=== PATIENT | female | born 1940 | race Caucasian/White ===

== ENCOUNTER 2016-10-15 11:48 | Emergency (ER) | payer OTHER ==
[~2016-10-15] VITALS: Ht 162.6 cm; Wt 93.2 kg
[~2016-10-15 11:48] MED LIST: DICL75TA5 PO; ENAL10 PO; GABA-533 PO; OMEP20 PO
[2016-10-15] MEDS ORDERED: ATOR20TA86 PO (11:56)
[2016-10-15] MEDS ORDERED: GUAIFDM PO (11:58)
[2016-10-15 12:36] LABS: BASOPHILS % (AUTO) 0.3 % (0.0-2.0); EOSINOPHILS % (AUTO) 2.5 % (1.0-6.0); HEMATOCRIT 37.7 % (36-46); HEMOGLOBIN 12.1 g/dL (12.0-16.0); LYMPHOCYTES # (AUTO) 1.8 K/uL (1.0-4.8); LYMPHOCYTES % (AUTO) 18.4 % (22.0-44.0); MEAN CORPUSCULAR HEMOGLOBIN 27.5 pg (26.0-34.0); MEAN CORPUSCULAR HGB CONC 32.2 G/dL (31.0-37.0); MEAN CORPUSCULAR VOLUME 85 fL (80-100); MONOCYTES # (AUTO) 0.8 K/uL (0.1-1.0); MONOCYTES % (AUTO) 7.8 % (2.0-9.0); NEUTROPHILS # (AUTO) 6.8 K/uL (1.8-7.7); PLATELET COUNT (AUTO) 278 K/uL (150-450); RED BLOOD CELL COUNT(AUTO) 4.41 MIL/uL (4.00-5.20); RED CELL DISTRIBUTION WIDTH 15.6 % (11.5-14.5); WHITE BLOOD COUNT (AUTO) 9.6 K/uL (4.5-11.0)
[2016-10-15 12:49] LABS: INFLUENZA TYPE B NEGATIVE FOR TYPE B (NEGATIVE)
[2016-10-15 13:36] VITALS: BP 150/74
== END 2016-10-15 13:38 | disposition home or self-care (01) ==
LOC: EMS 11:52
DX: J40 Bronchitis, not specified as acute or chronic (principal); K21.9 Gastro-esophageal reflux disease without esophagitis; E78.00 Pure hypercholesterolemia, unspecified; I10 Essential (primary) hypertension
CPT/HCPCS: 71020; 87804; 99285

== ENCOUNTER 2021-05-26 20:09 | Emergency (ER) | payer MEDICARE, OTHER ==
[~2021-05-26] VITALS: Ht 160 cm; Wt 83.2 kg
[~2021-05-26 20:09] MED LIST changes: +ATOR20TA86 PO; +ENAL-90 PO; -ENAL10 PO; +GABA-1201 PO; -GABA-533 PO; +GUAIFDM PO
[2021-05-26] MEDS ORDERED: ACETAMINOPHEN 325 MG TABLET PO ONE (23:15)
[2021-05-26 23:32] VITALS: BP 166/76
== END 2021-05-26 23:58 | disposition home or self-care (01) ==
LOC: EMS 20:14
DX: S00.03XA Contusion of scalp, initial encounter (principal); S40.012A Contusion of left shoulder, initial encounter; K21.9 Gastro-esophageal reflux disease without esophagitis; I10 Essential (primary) hypertension; E78.00 Pure hypercholesterolemia, unspecified; W18.39XA Other fall on same level, initial encounter; Y93.89 Activity, other specified; Y92.89 Other specified places as the place of occurrence of the external cause; Y99.8 Other external cause status
CPT/HCPCS: 70450; 72125; 99284

== ENCOUNTER 2022-11-28 12:13 | Emergency (ER) | payer MEDICARE ==
[~2022-11-28] VITALS: Ht 152.4 cm; Wt 86.4 kg
[~2022-11-28 12:13] MED LIST changes: +ATOR20TA PO; -ATOR20TA86 PO
[2022-11-28 12:21] VITALS: BP 138/64
[2022-11-28] MEDS ORDERED: PIPERACILLIN/TAZO 3.375 GM/D5W 50 ML IV ONE (15:15)
[2022-11-28 15:19] LABS: BASOPHILS % (AUTO) 1.2 % (0.0-2.0); EOSINOPHILS % (AUTO) 8.6 % (1.0-6.0); HEMATOCRIT 39.5 % (36-46); HEMOGLOBIN 12.9 g/dL (12.0-16.0); LYMPHOCYTES # (AUTO) 2.5 K/uL (1.0-4.8); LYMPHOCYTES % (AUTO) 37.5 % (22.0-44.0); MEAN CORPUSCULAR HEMOGLOBIN 30.3 pg (26.0-34.0); MEAN CORPUSCULAR HGB CONC 32.6 G/dL (31.0-37.0); MEAN CORPUSCULAR VOLUME 93 fL (80-100); MONOCYTES # (AUTO) 0.5 K/uL (0.1-1.0); NEUTROPHILS # (AUTO) 2.9 K/uL (1.8-7.7); NEUTROPHILS % (AUTO) 44.7 % (40.0-70.0); PLATELET COUNT (AUTO) 265 K/uL (150-450); RED BLOOD CELL COUNT(AUTO) 4.25 MIL/uL (4.00-5.20); RED CELL DISTRIBUTION WIDTH 14.2 % (11.5-14.5)
[2022-11-28 15:22] LABS: ANION GAP 7 mmol/L (8-16); CALCIUM, TOTAL 9.3 mg/dL (8.8-10.5); CARBON DIOXIDE 35 mmol/L (22-29); CHLORIDE 101 mmol/L (98-107); CREATININE 0.76 mg/dL (0.60-1.30); GLOMERULAR FILTR. RATE CALC > 60 mL/min (>60); GLUCOSE,RANDOM 273 mg/dL (70-110); POTASSIUM 3.4 mmol/L (3.5-5.1); SODIUM SERUM 143 mmol/L (136-145)
[2022-11-28] MEDS ORDERED: POTA-92 PO (15:23)
[2022-11-28] MEDS ORDERED: METF-1211 PO (15:23)
[2022-11-28] MEDS ORDERED: LOSA-382 PO (15:23)
[2022-11-28] MEDS ORDERED: FAMO20 PO (15:23)
[2022-11-28] MEDS ORDERED: AMLO5TAB66 PO (15:23)
[2022-11-28] MEDS ORDERED: FLUT16H NASAL (15:23)
[2022-11-28] MEDS ORDERED: DICL500C PO (15:23)
[2022-11-28] MEDS ORDERED: IBUP-2077 PO (15:23)
[2022-11-28 15:25] LABS: B-TYPE NATRIURETIC PEPTIDE 53 pg/mL (0-100)
[2022-11-28 15:28] LABS: ALANINE AMINOTRANSFERASE 10 U/L (12-78); ALBUMIN 3.5 g/dL (3.4-5.0); ALKALINE PHOSPHATASE 94 U/L (46-116); ASPARTATE AMINOTRANSFERASE 22 U/L (15-37); BILIRUBIN,TOTAL 0.3 mg/dL (0.1-1.0); TOTAL PROTEIN, SERUM 6.9 g/dL (6.4-8.2)
[2022-11-28] MEDS ORDERED: DOXYCYCLINE HYCLATE 100 MG TABLET PO ONE (16:30)
[2022-11-28] MEDS ORDERED: DOXY-354 PO (16:34)
[2022-11-28 16:37] LABS: APPEARANCE,URINE CLEAR (CLEAR); BILIRUBIN,URINE NEGATIVE (NEGATIVE); GLUCOSE, URINE (UA) 300-500 mg/dL (NEGATIVE); KETONES,URINE NEGATIVE (NEGATIVE); LEUKOCYTE ESTERASE ,URINE NEGATIVE (NEGATIVE); NITRATE,URINE NEGATIVE (NEGATIVE); OCCULT BLOOD,URINE NEGATIVE (NEGATIVE); PH,URINE 5.5 (5.0-8.0); PROTEIN,URINE NEGATIVE (NEGATIVE); SPECIFIC GRAVITIY, URINE 1.006 (1.003-1.030); UROBILINOGEN,URINE <=1.0 mg/dL (<=1.0)
[2022-11-28] MEDS ORDERED: TraMADol HCL 50 MG TABLET PO ONE (16:45)
[2022-11-28 17:14] LABS: BACTERIA,URINE None Seen /HPF (None Seen); RBC,URINE None Seen /HPF (0-2); WBC,URINE None Seen /HPF (0-5)
== END 2022-11-28 17:18 | disposition home or self-care (01) ==
LOC: EMS 12:18
DX: L03.115 Cellulitis of right lower limb (principal); E11.9 Type 2 diabetes mellitus without complications; E78.00 Pure hypercholesterolemia, unspecified; I10 Essential (primary) hypertension; K21.9 Gastro-esophageal reflux disease without esophagitis; Z90.710 Acquired absence of both cervix and uterus
CPT/HCPCS: 99285; 93970; 71045; 80053; 81001; 83880; 84484; 85025; 87040; 36415; 93005; J2543

== ENCOUNTER 2024-11-11 11:41 | Emergency (ER) | payer MEDICARE ==
[~2024-11-11] VITALS: Ht 152.4 cm; Wt 82.7 kg
[~2024-11-11 11:41] MED LIST changes: +AMLO5TAB66 PO; -ATOR20TA PO; +DICL500C PO; -DICL75TA5 PO; +DOXY-354 PO; -ENAL-90 PO; +FAMO20 PO; +FLUT16H NASAL; -GABA-1201 PO; -GUAIFDM PO; +IBUP-2077 PO; +LOSA-382 PO; +METF-1211 PO; -OMEP20 PO; +POTA-92 PO
[2024-11-11 11:47] VITALS: TEMP 98.2
[2024-11-11] MEDS ORDERED: GABA-534 PO (11:51)
[2024-11-11] MEDS ORDERED: ATOR20TA65 PO (11:51)
[2024-11-11] MEDS ORDERED: SITA100 PO (11:51)
[2024-11-11 12:25] LABS: BASOPHILS % (AUTO) 0.7 % (0.0-2.0); EOSINOPHILS % (AUTO) 1.9 % (1.0-6.0); HEMATOCRIT 35.7 % (36-46); HEMOGLOBIN 11.5 g/dL (12.0-16.0); LYMPHOCYTES # (AUTO) 1.3 K/uL (1.0-4.8); MEAN CORPUSCULAR HGB CONC 32.2 G/dL (31.0-37.0); MEAN CORPUSCULAR VOLUME 87 fL (80-100); MONOCYTES # (AUTO) 0.9 K/uL (0.1-1.0); MONOCYTES % (AUTO) 11.3 % (2.0-9.0); NEUTROPHILS # (AUTO) 5.4 K/uL (1.8-7.7); NEUTROPHILS % (AUTO) 69.1 % (40.0-70.0); PLATELET COUNT (AUTO) 227 K/uL (150-450); RED CELL DISTRIBUTION WIDTH 15.9 % (11.5-14.5); WHITE BLOOD COUNT (AUTO) 7.8 K/uL (4.5-11.0)
[2024-11-11 12:33] LABS: ANION GAP 7 mmol/L (8-16); CALCIUM, TOTAL 8.8 mg/dL (8.8-10.5); CARBON DIOXIDE 28 mmol/L (22-29); CHLORIDE 101 mmol/L (98-107); GLOMERULAR FILTR. RATE CALC > 60 mL/min (>60); GLUCOSE,RANDOM 125 mg/dL (70-110); POTASSIUM 4.1 mmol/L (3.5-5.1); SODIUM SERUM 136 mmol/L (136-145); UREA NITROGEN, BLOOD 11 mg/dL (7-18)
[2024-11-11 12:41] LABS: TROPONIN I-HIGH SENSITIVITY 7 ng/L (<51)
[2024-11-11] MEDS: KETOROLAC TROMETHAMINE 60 MG/2 ML VIAL IM ONE (15:20)
[2024-11-11] MEDS: methocarbamoL 500 MG TABLET PO ONE (15:20)
[2024-11-11] MEDS: LIDOCAINE 5% TRANSDERMAL PATCH TD ONE (15:20)
[2024-11-11 15:21] LABS: APPEARANCE,URINE CLEAR (CLEAR); BILIRUBIN,URINE NEGATIVE (NEGATIVE); COLOR,URINE YELLOW (YELLOW); GLUCOSE, URINE (UA) NEGATIVE (NEGATIVE); KETONES,URINE NEGATIVE (NEGATIVE); LEUKOCYTE ESTERASE ,URINE TRACE (NEGATIVE); NITRATE,URINE NEGATIVE (NEGATIVE); OCCULT BLOOD,URINE NEGATIVE (NEGATIVE); PROTEIN,URINE TRACE mg/dL (NEGATIVE); SPECIFIC GRAVITIY, URINE 1.023 (1.003-1.030); UROBILINOGEN,URINE <=1.0 mg/dL (<=1.0)
[2024-11-11 15:54] LABS: BACTERIA,URINE Rare /HPF (None Seen); RBC,URINE None Seen /HPF (0-2); WBC,URINE 0-2 /HPF (0-5)
[2024-11-11 16:29] VITALS: BP 126/63; PULSE 63; RESP 15; O2SAT 99
[2024-11-11] MEDS ORDERED: METH-659 PO (16:45)
[2024-11-11] MEDS ORDERED: IBUP-1492 PO (16:45)
[2024-11-11] MEDS ORDERED: LIDO-57 TP (16:45)
== END 2024-11-11 17:35 | disposition home or self-care (01) ==
LOC: EMS 11:45
DX: S29.012A Strain of muscle and tendon of back wall of thorax, initial encounter (principal); S16.1XXA Strain of muscle, fascia and tendon at neck level, initial encounter; I10 Essential (primary) hypertension; E78.00 Pure hypercholesterolemia, unspecified; E11.9 Type 2 diabetes mellitus without complications; K21.9 Gastro-esophageal reflux disease without esophagitis; Z79.84 Long term (current) use of oral hypoglycemic drugs; Z79.899 Other long term (current) drug therapy; Z90.710 Acquired absence of both cervix and uterus; W18.30XA Fall on same level, unspecified, initial encounter; Y93.89 Activity, other specified; Y92.89 Other specified places as the place of occurrence of the external cause; Y99.8 Other external cause status
CPT/HCPCS: 99285; 80048; 81001; 82962; 84484; 85025; 36415; 72040; 93005; 96372; J1885